=== PATIENT | female | born 1990 | race Two or more races ===

== ENCOUNTER 2024-04-26 12:43 | Emergency (ER) | payer MEDICAID, SELFPAY ==
[2024-04-26 12:44] VITALS: BMI 28.7
[2024-04-26 13:50] VITALS: BP 117/67; PULSE 102; RESP 20; TEMP 37; O2SAT 97
--- NOTE | 2024-04-26 14:18 | EDNOTE_ITS ---
<Statement entered by Joceline Link MD - 04/30/24 07:15> As co-signing physician, I was present and available for consult prn. I concur with the plan and care as documented by the midlevel provider. ED Ear RME/HPI General Chief complaint: Headache Stated complaint: HEADACHE, LEFT EAR PAIN Time Seen by Provider: 04/26/24 13:21 Source: patient and family Arrival date/time: 04/26/24 12:43 This is a 33-year-old female who is 27 weeks of gestation. Presents to the emergency department with complaints of left ear pain. Patient does report she has had a sinus congestion and a headache for 3 days. Did see her PCP which she will prescribe Tylenol and Benadryl [id number]. Denies fever, chills no abdominal pain. + Positive movements. No abdominal complaints. Mode of arrival: ambulatory Limitations: no limitations Related Data Previous Rx's ?Medication ?Instructions ?Recorded amoxicillin 500 mg capsule 500 mg PO Q12H 5 days #10 c aps 04/26/24 fluticasone propionate 50 2 spray intranasal QDAY 5 da ys #16 04/26/24 mcg/actuation nasal grams spray,suspension (Flonase Allergy Relief) ofloxacin 0.3 % ear drops 10 drp otic (ear) QDAY 7 day s #5 mL 04/26/24 Allergies Allergy/AdvReac Type Severity Reaction Status Date / Time No Known Drug Allergies Allergy Verified 04/26/24 12:44 Review of Systems Review of Systems Systems Reviewed: All systems reviewed, normal except as documented Narrative Review of Systems: Gen: No fever, no chills, no weight loss EYES: No discharge, no visual changes, no pain HEENT: + ear pain, + bilateral nasal congestion, no sore throat PULM: No shortness of breath, no cough, no congestion CV: No chest pain, no dyspnea on exertion, no palpitations GI: No nausea, no vomiting, no diarrhea, no pain, no constipation : No frequency, no urgency,? no dysuria Musc/skel: No joint pain, no back pain Skin: No rash? ED Exam General Limitations: Present no limitations General appearance: Present alert and in no apparent distress Head Head exam: Present atraumatic Eye Eye exam: Present normal appearance, PERRL and EOMI ENT ENT exam: Present normal oropharynx, mucous membranes moist and TM's normal bilaterally Expanded ENT Exam TM/Canal exam: Left TM: erythema, bulging and effusion Nose exam: Present sinus tenderness Neck Neck exam: Present normal inspection, full ROM and trachea midline Chest Chest inspection: Present normal inspection and symmetric chest wall rise Respiratory Respiratory exam: Present normal lung sounds bilaterally Cardiovascular Cardiovascular exam: Present regular rate, normal rhythm and normal heart sounds Abdominal Exam Abdominal exam: Present soft and normal bowel sounds Extremities Exam Extremities exam: Present normal inspection and full ROM Back Exam Back exam: Present normal inspection and full ROM Neurological Exam Neurological exam: Present alert, oriented X3 and CN II-XII intact Psychiatric Psychiatric exam: Present normal affect and normal mood Skin Skin exam: Present warm, dry, intact and normal color Course Quality Measures none Vital Signs Vital signs: Vital Signs Temperature 98.6 F 04/26/24 13:50 Pulse Rate 102 H 04/26/24 13:50 Respiratory Rate 20 04/26/24 13:50 Blood Pressure 117/67 04/26/24 13:50 Pulse Oximetry (%) 97 04/26/24 13:50 Oxygen Delivery Method Room Air 04/26/24 13:50 Ear Patient data External records reviewed:: [facility] previous records Clinical information provided by:: patient Social determinants that could affect healthcare access:: none Patient has the following chronic illnesses:: No How is presenting disease/condition affected by chronic disease/condition?: no chronic disease Evaluation data The following diagnostics were reviewed and interpreted by me:: other (specify) Lab and/or radiology exams considered but not ordered:: None Interpretation Summary: Not applicable Medications / Prescriptions Medications or Prescriptions considered but not ordered:: No Medication administrations:: Not available Consultations Consultation(s) initiated? (list below): No Diagnosis Ear Differential Diagnosis: otitis externa, otitis media, foreign body in ear and ruptured TM Most likely diagnosis given after review of the tests above:: Otitis media, sinus congestion Admission Indicated Admission indicated?: not indicated Admission Request Was there a request for admission?: No Disposition Plan Disposition Plan: Discharge Discharge Attestation Discharge Attestation: The patient and all family members were given an opportunity to ask questions and understood the discharge instructions. Discharge instructions specifically effects, indications for sooner follow up or return to the emergency department, and the expected course of current diagnosis. Patient condition: Stable Discharge Plan Plan Patient Disposition: HOME (Self Care) Patient condition on transfer: Stable Prescriptions/Referrals Prescriptions/Med Rec: New amoxicillin 500 mg capsule 500 mg PO Q12H 5 Days Qty: 10 0RF ofloxacin 0.3 % drops 10 drp otic (ear) QDAY 7 Days Qty: 5 0RF fluticasone propionate [Flonase Allergy Relief] 50 mcg/actuation spray,cynthia pension 2 spray intranasal QDAY 5 Days Qty: 16 0RF Rx Instructions: administer into each nostril Problem List Clinical Impression: Otitis media, Congestion of nasal sinus Patient/Caregiver Discharge Instructions Discharge Activity: activity as tolerated Education Materials: ED Otitis Media Antibiotic ... Additional Instructions: Please take your medication as directed. Please follow-up with your primary doctor Please return to the emergency department with any worsening symptoms or change in condition. Print Language: Danish Stand Alone Forms: Lakia Award Info., Patient Portal Info Letter PA/RADHA Supervising Physician PA/CHOP SAW OPERATOR Supervising Physician: Dr. Arauz
== END 2024-04-26 14:50 | disposition home or self-care (01) ==
LOC: SERX 14:34
PROVIDERS: Emergency Provider Emergency Medicine
DX: O99.891 Other specified diseases and conditions complicating pregnancy (principal); H66.92 Otitis media, unspecified, left ear; R09.81 Nasal congestion
CPT/HCPCS: 99281

== ENCOUNTER 2024-07-09 16:20 | Inpatient (IN) | payer MEDICAID, SELFPAY ==
[2024-07-09] VITALS (73 sets, daily range): BP systolic 0–163; BP diastolic 0–92; PULSE 74–131; RESP 18–99; TEMP 36.7; O2SAT 91–100; BMI 30.4
[2024-07-09 17:12] LABS: ROM Kit Lot # 57807112; ROM Swab Mixed By: SAUCT; Rupture of Fetal Membranes Negative (Negative); Swb Mxed in Solvent 1 min? Yes
[2024-07-09] MEDS: RINGERS LACTATED 1000 ML 1,000 ML 100 ML IV (18:48)
[2024-07-09 19:18] LABS: Basophils % (Auto) 0 % (0-2.5); Eosinophils % (Auto) 0 % (0-10); Hemoglobin 9.3 g/dL (12.0-16.0); Immature Granulocytes % (Auto) 0 % (0-0); Immature Granulocytes Auto 0.05 Thou/mm3 (0.00-0.00); Lymphocytes # (Auto) 1.3 Thou/mm3 (1.0-4.8); Lymphocytes % (Auto) 12 % (10-50); Mean Corpuscular HGB Conc 33.2 g/dl (31.0-37.0); Mean Corpuscular Hemoglobin 24.4 pg (25.0-35.0); Mean Corpuscular Volume 74 fL (80-100); Monocytes # (Auto) 0.6 Thou/mm3 (0.0-0.8); Monocytes % (Auto) 5 % (0-12); Neutrophils # (Auto) 9.5 Thou/mm3 (1.8-7.7); Neutrophils % (Auto) 82 % (37-80); Nucleated Red Blood Cell % 0 /100 WBC (0); Platelet Count 307 Thou/mm3 (140-440); RDW Standard Deviation 39.8 fL (36.4-46.3); Red Blood Count 3.81 Miln/mm3 (4.00-5.20); White Blood Count 11.5 Thou/mm3 (3.6-11.0)
[2024-07-09] MEDS: ACETAMINOPHEN 325 MG TABLET 650 MG PO (19:24)
[2024-07-09] MEDS: fentaNYL CIT INJ 50 mCg/ML AMP 2ML 100 MCG IV (19:25)
[2024-07-09 20:02] LABS: Fibrinogen 415 mg/dL (175-375); Partial Thromboplastin Time 27.9 Seconds (22.0-36.0); Prothrombin Time 11.1 Seconds (9.0-12.2)
[2024-07-09 20:18] LABS: Alanine Aminotransferase 21 U/L (10-49); Albumin, Serum 4.2 gm/dL (3.5-5.0); Albumin/Globulin Ratio 1.6 (1.2-2.2); Alkaline Phosphatase 203 U/L (46-116); Anion Gap 9 (7-16); Aspartate Amino Transferase 29 U/L (0-34); BUN/Creatinine Ratio 15 Ratio (12-20); Bilirubin,Total 0.3 mg/dL (0.3-1.2); Blood Urea Nitrogen 6 mg/dL (9-23); Calcium 8.9 mg/dL (8.3-10.6); Calcium (Corrected) 8.9 mg/dL (8.5-10.1); Chloride 110 mMol/L (98-107); Creatinine (Component) 0.4 mg/dL (0.6-1.3); Globulin 2.7 gm/dL (2.3-3.5); Glucose 88 mg/dL (74-106); LDH (Lactate Dehydrogenase) 245 U/L (120-246); Osmolality,Calculated 272 (275-295); Potassium 3.3 mMol/L (3.4-5.1); Sodium 138 mMol/L (136-145); Total Protein 6.9 gm/dL (5.7-8.2); Uric Acid 5.6 mg/dL (3.1-7.8); eGFR > 60 See Note
[2024-07-09 20:36] LABS: Syphilis Nonreactive (Nonreactive)
[2024-07-09] MEDS: LIDOCAINE HCL 1% 20 ML VIAL INFL (21:10)
[2024-07-09] MEDS: MINERAL OIL 30 ML UDC TOP (21:10)
[2024-07-09] MEDS: OXYTOCIN INJ 10 UNIT/ML VIAL IM (21:10)
[2024-07-09] MEDS: TRANEXAMIC ACID 1,000 MG IVPB 1,000 MG/100 ML BAG 200 MG IV (21:11)
[2024-07-09] MEDS: OXYTOCIN in NS 20 units 20 UNIT/1,000 ML BAG 125 UNIT IV (21:11)
[2024-07-09] MEDS: MISOPROSTOL 200 mCg TABLET 800 MCG PR (21:11)
[2024-07-09] MEDS: BENZO/LANO/ALOE (Dermoplast) 60 GM CAN 1 SPRAY TOP (21:24)
[2024-07-09] MEDS: IBUPROFEN TAB 400 MG TABLET 800 MG PO (21:26)
--- NOTE | 2024-07-09 21:31 | PD.LDHP ---
Documentation for date of: 07/09/24 OB Labor/Induct. HPI History of Present Illness Chief complaint: labor : 4 Para: 3 Term pregnancies: 3 pregnancies: 0 Living children: 3 History of Abortions: Spontaneous and Elective: 0 History of Vaginal deliveries: 3 History of sections: No History of : No Date of last menstrual period: 10/12/23 LOW: 07/18/24 Gestational Age (weeks): 38 Gestational Age (days): 5 Gestational age based on last menstrual period: 38 History of present illness: 33-year-old 4 para 3 admit to labor and delivery with complaints of contractions since 2 in the afternoon. Patient is been followed at [facility] for care. First visit was at 14 weeks. Last period October 12, 2023. This gave due date July 18, 2024. Patient has had 2 MFM ultrasounds and both showed normal anatomy. Patient denies social habits. Denies surgery. Denies chronic illness. She is O+, antibody screen negative, RPR nonreactive, rubella immune, hepatitis B negative, hep C negative, HIV negative. GC and Chlamydia were negative. Patient had negative NIPT and carrier screens. 1 hour Glucola was normal. GBS is negative. Reports movement. Denies any bleeding. Denies leaking. Contractions are about every 3 minutes History of Present Dating criteria: LMP confirmed by 2nd trimester US Adequate Care: Yes Ultrasounds: normal mid trimester US Obstetrical complications: none Medical complications: none Labs Labs: Negative: Hepatitis B, HIV, Chlamydia and Gonorrhea and Unknown: Group Beta Strep Review of Systems Review of Systems Systems Reviewed: All systems reviewed, normal except as documented Past Medical History Surgical History SURGICAL: Negative Section Meds Home Medications and Allergies Home Medications ?Medication ?Instructions ?Recorded ?Confirmed ?Type vit no.95-ferrous 1 tab PO QDAY 07/09/24 07/09/24 History fumarate 28 mg-folic acid 800 mcg tablet () Allergies Allergy/AdvReac Type Severity Reaction Status Date / Time No Known Drug Allergies Allergy Verified 07/09/24 18:46 OB Exam Physical Exam Vital signs: Temp Pulse Resp BP Pulse Ox 98.1 F 89 18 123/69 100 07/09/24 17:08 07/09/24 21:18 07/09/24 17:08 07/09/24 21:18 07/09/24 21:26 Narrative: Vital signs stable afebrile. Normal heart rate and rhythm. Lungs clear no wheezes. Gravid abdomen. Gynecoid pelvis. Estimated weight 6 pounds. Vaginal exam on admission was 80%, 4, -2. Vertex. Bag water intact. heart rate category 1 with accelerations and moderate variability and contractions every 3 to 4 minutes prior to admission though baby had had a variable decel. Patient also had 2 blood pressures that were elevated. PIH labs were drawn and those were normal Detailed Labor and Delivery Exam Dilation (cm): 4 Effacement (%): 80 Cervix position: mid station: -2 Consistency: soft Presentation: Vertex position: Right Occiput Posterior Cervical ripeness score: 8 Membranes: intact Baseline heart rate: 130 monitor decelerations: Variable residential variability: Moderate (11-25) Contraction frequency (min): 3-4 Contraction duration (sec): 30 Tachysystole: No Contraction intensity: Moderate OB Results Labs 07/09/24 18:40 07/09/24 18:40 Labs: Short CBC 07/09/24 Range/Units 18:40 WBC 11.5 H (3.6-11.0) Thou/mm3 Hgb 9.3 L (12.0-16.0) g/dL Hct 28.0 L (36.0-46.0) % Plt Count 307 (140-440) Thou/mm3 BMP 07/09/24 18:40 Sodium 138 Potassium 3.3 L Chloride 110 H Carbon Dioxide 19.0 L BUN 6 L Creatinine 0.4 L Glucose 88 Calcium 8.9 Liver Function 07/09/24 Range/Units 18:40 Total Bilirubin 0.3 (0.3-1.2) mg/dL AST 29 (0-34) U/L ALT 21 (10-49) U/L Alkaline Phosphatase 203 H (46-116) U/L Albumin 4.2 (3.5-5.0) gm/dL OB Assessment & Plan Assessment and Plan (1) Normal labor and delivery: Status: Acute Additional Plan Induction method: none Plan: consult MD vaughn
--- NOTE | 2024-07-09 21:37 | PD.LDDELS ---
Data (Back) Data Hx Section: No : 4 Para: 3 Term: 3 : 0 : 0 Delivery Data (Back) Labor Data Stimulated/Augmented: No Induction: No Method: AROM ROM Date: 07/09/24 ROM Time: 20:00 Rupture Type: AROM Amniotic Fluid: Clear Delivery Data EDC: 07/18/24 EDC calculated by:: LMP/early US confirmation Labor Onset Stage 1 Date: 07/09/24 Labor Onset Stage 1 Time: 14:00 Labor Onset Stage 2 Date: 07/09/24 Labor Onset Stage 2 Time: 20:02 Delivery Date: 07/09/24 Delivery Time: 20:47 Gestational age (weeks): 38 Gestational age (days): 5 Placenta Delivery Date: 07/09/24 Placenta Delivery Time: 20:53 Delivered by: Chelsea Aviles Delivery nurse: Nina Pepper Melt Superintendant at delivery: No Support person(s) at delivery: FOB Other staff at delivery: Nursery Nurse Other staff at delivery: Katey Montanez Delivery Method Delivery: Vaginal Delivery Type: Vacuum Assisted (persistent variable deceleration. poor maternal pushing. Dr Andrews in to place vacuum . 1 pull, head delivered and Olvin Aviles CNM delivered vigorous baby) Presentation: Vertex Position: ROT Anesthesia Type Primary Anesthesia: Local Delivery Room Medications Other Intrapartum Medications: No Post Delivery Medications: Tocolytics and Cytotec Post Delivery Medications N/A: No Placenta Placenta Delivery: Spontaneous (placenta delivered spontaneous, inspected. complete) Placenta Cultures Obtained: No Placenta Sent for Examination: No Cord Sample: Cord Blood Obtained Episiotomy Episiotomy: None Lacerations #1: Perineal: 2nd degree Perineal repair Sutures used for repair: 3.0 Vicryl (2.0) EBL Estimated blood loss (ml): 400 Umbilical Cord Umbilical Vessels: 3 Nuchal Cord: x1 Body Cord: x1 [place] Data (Back) [place] Data Gender: Female Identification Band Number: [id number] Infant Weight Grams: 2870 1 Minute Total: 8 5 Minute Total: 9
[2024-07-09 22:36] LABS: Amphetamine/Metham Scrn,Ur OB Negative (Negative); Benzoylecgonine Screen, Ur OB Negative (Negative); Opiate Screen,Urine OB Negative (Negative); THC Screen,Urine OB Negative (Negative)
[2024-07-10] VITALS: BP 108/61; PULSE 80; RESP 16; TEMP 36.9; O2SAT 97
[2024-07-10 03:38] VITALS: BP 112/65; PULSE 84; RESP 16; TEMP 36.8; O2SAT 99
--- NOTE | 2024-07-10 07:41 | ESDS_ITS ---
DS: Providers Provider Date of admission: 07/09/24 18:29 Primary care physician: Physician No Primary/Family Admitting Provider: Chelsea Aviles CNM Attending Provider on Admission: Chelsea Aviles CNM Consults: 07/09/24 23:40 Referral Routine Comment: Attending Provider on DC: Geno Hampton CNM Discharging Provider: Geno Hampton CNM Anticipated date of discharge: 07/10/24 DS: Diagnosis Discharge Diagnosis (1) Vacuum-assisted vaginal delivery: Status: Acute (2) Encounter for care of lactating mother: Status: Acute Problem List Completed Was Problem List Reviewed/Reconciled?: Yes Summary/Hosp Course Brief History: 33-year-old 4 para 3 admit to labor and delivery with complaints of contractions since 2 in the afternoon. Patient is been followed at [facility] for care. First visit was at 14 weeks. Last period October 12, 2023. This gave due date July 18, 2024. Patient has had 2 M ultrasounds and both showed normal anatomy. Patient denies social habits. Denies surgery. Denies chronic illness. She is O+, antibody screen negative, RPR nonreactive, rubella immune, hepatitis B negative, hep C negative, HIV negative. GC and Chlamydia were negative. Patient had negative NIPT and carrier screens. 1 hour Glucola was normal. GBS is negative. Reports movement. Denies any bleeding. Denies leaking. Contractions are about every 3 minutes 07/10/24: day 1. Patient is stable and afebrile doing well and postp artum denies dizziness shortness of breath no problems ambulating or going to the bathroom. No bowel movement as of yet. Uterus is nontender fundus firm minimal lochia. Discharge instructions given. Patient to follow-up with Geno Hampton CNM in [address] Cardozo. Peripartum Data Delivery Method: Operative Vaginal Delivery Episiotomy Description: None Laceration Description: yes and see Delivery Summary complications: none 1: Gender: Female Disposition of : home Status at Discharge Cognitive/behavioral status at discharge: Alert and oriented x 3 Functional status at discharge: independent ambulation Overall status at discharge: patient is progressing back to baseline Time Spent with Patient Time attestation: Total time spent providing and/or coordinating discharge services: Time spent: Greater than 30 minutes Exam Vital Signs Temp Pulse Resp BP Pulse Ox O2 Del Method 98.2 F 84 16 112/65 99 Room Air 07/10/24 03:38 07/10/24 03:38 07/10/24 03:38 07/10/24 03:38 07/10/24 03:38 07/10/24 03:38 Constitutional Constitutional: no acute distress Routine HEENT Exam Head: Present normocephalic and atraumatic Eye: Present EOMI, PERRL and normal accommodation ENT: Present mucous membranes moist Routine Neck Exam Neck: Present supple, full ROM and trachea midline Routine Respiratory Exam Respiratory: Present chest non-tender, lungs clear, normal breath sounds and no resp distress Routine Cardiovascular Exam Cardiovascular: Present RRR Routine Abdominal Exam Abdominal: Present soft and normoactive bowel sounds Comments: Uterus nontender Fundus firm Routine Exam Patient deferred: external exam Routine Extremities Exam Extremities: Present full ROM, pulses intact and normal capillary refill; Absent calf tenderness or tenderness Routine Back/Spine/Pelvis Exam Back/Spine: Present full ROM Routine Skin Exam Skin: Present intact, dry and warm Routine Neurological Exam Neurological: Present alert, oriented X3 and CN II-XII intact Routine Psychiatric Exam Psychiatric: Present normal affect and normal thought process Discharge Plan Plan Patient Disposition: HOME (Self Care) Patient condition on transfer: Stable Prescriptions/Referrals Prescriptions/Med Rec: New ibuprofen 800 mg tablet 800 mg PO Q6H MDD 4 PRN (Reason: pain) Qty: 90 0RF docusate sodium [Colace] 100 mg capsule 100 mg PO BID Qty: 60 0RF lanolin 50 % ointment 1 applic topical TID PRN (Reason: skin irritation) Qty: 15 0RF Continued PNV cmb#95-ferrous fumarate-FA [] 28 mg iron- 800 mcg tablet 1 tab PO QDAY Patient Comments: TAKE 1 TABLET BY MOUTH EVERY DAY Referrals: No Primary/Family,Physician [Primary Care Provider] - Patient/Caregiver Discharge Instructions Meds to Beds: No Discharge Activity: activity as tolerated Other Discharge Activity Instructions:: Follow-up with Geno Hampton CNM in [address] Cardozo Education Materials: After a Vaginal , After Delivery Concerns Print Language: Hebrew Stand Alone Forms: Lakia Award Info., Patient Portal Info Letter Discharge Order Discharge Orders: Discharge (Routine); Ordered 07/10/24 Ordered By: Geno Hampton Planned Discharge Date 07/10/24
[2024-07-10] MEDS: IBUPROFEN TAB 400 MG TABLET 800 MG PO (07:49)
[2024-07-10] MEDS: DOCUSATE SOD 100 MG CAPSULE PO (07:49)
[2024-07-10 07:50] VITALS: BP 124/77; PULSE 71; RESP 16; TEMP 36.9; O2SAT 98
[2024-07-10 07:59] LABS: Basophils % (Auto) 0 % (0-2.5); Eosinophils % (Auto) 0 % (0-10); Hematocrit 26.5 % (36.0-46.0); Immature Granulocytes % (Auto) 0 % (0-0); Immature Granulocytes Auto 0.05 Thou/mm3 (0.00-0.00); Lymphocytes # (Auto) 1.6 Thou/mm3 (1.0-4.8); Lymphocytes % (Auto) 14 % (10-50); Mean Corpuscular HGB Conc 32.5 g/dl (31.0-37.0); Mean Corpuscular Hemoglobin 24.6 pg (25.0-35.0); Mean Corpuscular Volume 76 fL (80-100); Monocytes # (Auto) 0.8 Thou/mm3 (0.0-0.8); Monocytes % (Auto) 7 % (0-12); Neutrophils % (Auto) 78 % (37-80); Nucleated Red Blood Cell % 0 /100 WBC (0); Platelet Count 279 Thou/mm3 (140-440); RDW Standard Deviation 40.8 fL (36.4-46.3); White Blood Count 11.5 Thou/mm3 (3.6-11.0)
[2024-07-10 08:24] LABS: Hemoglobin 8.6 g/dL (12.0-16.0)
[2024-07-10 11:10] VITALS: BP 100/61; PULSE 68; RESP 15; TEMP 36.8; O2SAT 99
--- NOTE | 2024-07-10 12:41 | PC.SS ---
SS conducted bedside contact with the patient to address nursing referral indicating that patient was late to care at 15 weeks.? SS introduced self and role.? SS asked for permission to speak in front of spouse.? Patient agreed.? Patient confirmed late to care because she didn?t know she was . Patient received care under the care of mid-, Chelsea Aviles. NB is patient?s fourth child. ?NB was born on [birth year] via natural .? Ages of other children in the home: 10, 13, and 15. Patient has not decided upon a event security officer. ?FOB is Skip Frias. FOB resides in the home. Patient states she plans on bottle feeding. Patient denies history of drugs or alcohol.? Patient denies any history of mental illness, CWS or DV. ?Patient is aligned with WIC, FS and TANF. director of cardiopulmonary services provided resources to include:? Parenting Network, Warm Line and community numbers. Patient has access to appropriate supplies and equipment.? Patient has access to a car seat.? Patient describes possessing support system consisting of spouse and family. FOB to provide transportation home. No further intervention required at this time. Sas Programmer will be available to address any further concerns. SS updated bedside nurse.
[2024-07-10 15:35] VITALS: BP 105/67; PULSE 62; RESP 15; TEMP 36.8; O2SAT 98
[2024-07-10 19:45] VITALS: BP 106/71; PULSE 77; RESP 16; TEMP 36.7; O2SAT 98
== END 2024-07-10 21:11 | disposition home or self-care (01) | DRG 560 ==
LOC: S4SX 07-10 06:05 → S4NX 07-10 06:05
PROVIDERS: Obstetrics & Gynecology; Admitting Provider Advanced Practice Midwife; Visit Provider Advanced Practice Midwife
DX: O69.81X0 Labor and delivery complicated by cord around neck, without compression, not applicable or unspecified (principal); O69.82X0 Labor and delivery complicated by other cord entanglement, without compression, not applicable or unspecified; O70.1 Second degree perineal laceration during delivery; O76 Abnormality in fetal heart rate and rhythm complicating labor and delivery; Z37.0 Single live birth; Z3A.38 38 weeks gestation of pregnancy
CPT/HCPCS: 36415; 59409; 80053; 80307; 81001; 82570; 83615; 84112; 84156; 84550; 85025; 85384; 85610; 85730; 86780; 86850; 86900; 86901; 94762; J2590; J3010; J3490; J7120; S0191; A9270